=== PATIENT | male | born 1960 | race Hispanic/Latino ===

== ENCOUNTER 2020-03-28 01:17 | Inpatient (IN) | payer BC, OTHER ==
[~2020-03-28] VITALS: Ht 180.3 cm; Wt 127.0 kg
[~2020-03-28 01:17] MED LIST: ASPI-1443 PO; ATOR40TA69 PO; HYDR-4068 PO; LOSA50TA64 PO; METO25 PO; TICA90TA PO
[2020-03-28 01:43] LABS: ABG BASE EXCESS -4.4 mmol/L (-2.0-3.0); ABG HCO3 19.1 mmol/L (21.0-28.0); ABG OXYGEN SATURATION 95.4 % (95.0-99.0); ABG PCO2 31 mmHg (35-48)
[2020-03-28 01:52] LABS: BASOPHILS % (AUTO) 0.8 % (0.0-5.0); EOSINOPHILS % (AUTO) 0.1 % (0.0-8.0); HEMATOCRIT 52.7 % (42-54); LYMPHOCYTES % (AUTO) 24.5 % (21.0-51.0); MEAN CORPUSCULAR HEMOGLOBIN 30.8 pg (27.0-33.0); MEAN CORPUSCULAR HGB CONC 33.4 g/dL (32.0-36.0); MEAN CORPUSCULAR VOLUME 92.3 fL (79-99); MONOCYTES % (AUTO) 3.9 % (3.0-13.0); NEUTROPHILS % (AUTO) 70.3 % (40.0-77.0); PLATELET COUNT (AUTO) 225 K/uL (130-400); RED BLOOD CELL COUNT(AUTO) 5.71 MIL/uL (4.50-6.20); RED CELL DISTRIBUTION WIDTH 13.1 % (11.0-15.5); WHITE BLOOD COUNT (AUTO) 7.6 K/uL (4.8-10.8)
[2020-03-28 02:13] LABS: B-TYPE NATRIURETIC PEPTIDE 145 pg/mL (0-100)
[2020-03-28 02:20] LABS: POTASSIUM 4.1 mmol/L (3.5-5.1)
[2020-03-28 02:21] LABS: APPEARANCE,URINE Clear (CLEAR); BILIRUBIN,URINE Negative (NEGATIVE); COLOR,URINE Yellow (YELLOW); GLUCOSE, URINE (UA) Negative (NEGATIVE); KETONES,URINE Negative (NEGATIVE); LEUKOCYTE ESTERASE ,URINE Negative (NEGATIVE); NITRATE,URINE Negative (NEGATIVE); OCCULT BLOOD,URINE Negative (NEGATIVE); PROTEIN,URINE Negative (NEGATIVE); UROBILINOGEN,URINE 0.2 mg/dL (0.2-1.0)
[2020-03-28 02:24] LABS: INR 0.99 (0.85-1.15); PARTIAL THROMBOPLASTIN TIME 28.4 SEC (26.3-35.5); PROTHROMBIN TIME 10.7 SEC (9.6-11.6)
[2020-03-28 02:25] LABS: ALBUMIN 3.6 g/dL (3.5-5.0); BILIRUBIN,TOTAL 0.5 mg/dL (0.2-1.0); TOTAL PROTEIN, SERUM 7.7 g/dL (6.0-8.3)
[2020-03-28] MEDS ORDERED: DILTIAZEM HCL 5 MG/ML 10 ML VIAL IV ONE (02:43)
[2020-03-28] MEDS ORDERED: AZITHROMYCIN 500MG+NS 250ML 250 ML IV ONE (03:01)
[2020-03-28] MEDS ORDERED: CEFTRIAXONE SODIUM 1 GM ONE (03:01)
[2020-03-28] MEDS ORDERED: IOHEXOL 350 MG/ML 100ML INFUS..BTL IV ONE (03:07)
[2020-03-28] MEDS ORDERED: HYDRALAZINE HCL 20 MG/ML VIAL IV PRN (03:45)
[2020-03-28] MEDS ORDERED: ONDANSETRON HCL 4 MG/2 ML VIAL IV PRN (03:45)
[2020-03-28] MEDS ORDERED: NITROGLYCERIN 0.4 MG SL TAB SL PRN (03:45)
[2020-03-28] MEDS ORDERED: ERGOCALCIFEROL (VITAMIN D2) 50,000 UNIT CAPSULE PO ONE (03:45)
[2020-03-28] MEDS ORDERED: CEFTRIAXONE SODIUM 1 GM IVP SCH (03:45)
[2020-03-28] MEDS ORDERED: ACETAMINOPHEN 325 MG TAB PO PRN (03:45)
[2020-03-28 06:59] VITALS: BP 141/74
[2020-03-28 07:30] VITALS: BP 143/100
[2020-03-28] MEDS ORDERED: FUROSEMIDE 10 MG/ML 2ML VIAL IV SCH (08:30)
[2020-03-28] MEDS: ZINC SULFATE 220 CAPSULE PO SCH ×2 (08:50→08:55)
[2020-03-28] MEDS: METOPROLOL TARTRATE 25 MG TAB PO SCH ×2 (08:51→20:55)
[2020-03-28] MEDS: ASCORBIC ACID 500 MG TAB PO SCH (08:55)
[2020-03-28] MEDS: ACETYLCYSTEINE 600 MG CAPSULE PO SCH ×2 (08:56→20:55)
[2020-03-28] MEDS ORDERED: METHYLPREDNISOLONE SOD SUCC 40MG/ML 1ML IVP SCH (09:00)
[2020-03-28] MEDS: APIXABAN 5 MG TABLET PO SCH ×2 (09:27→20:55)
[2020-03-28] MEDS: ASPIRIN 81MG TAB.CHEW PO SCH (09:34)
[2020-03-28 12:00] VITALS: BP 140/85
[2020-03-28 16:00] VITALS: BP 150/95
[2020-03-28 19:00] VITALS: BP 119/68
[2020-03-28] MEDS: ATORVASTATIN CALCIUM 20 MG TABLET PO SCH (20:55)
[2020-03-28 23:00] VITALS: BP 90/64
[2020-03-29 03:00] VITALS: BP 118/83
[2020-03-29 05:02] LABS: BASOPHILS % (AUTO) 0.6 % (0.0-5.0); EOSINOPHILS % (AUTO) 3.2 % (0.0-8.0); HEMATOCRIT 48.8 % (42-54); LYMPHOCYTES % (AUTO) 24.7 % (21.0-51.0); MEAN CORPUSCULAR HEMOGLOBIN 30.4 pg (27.0-33.0); MEAN CORPUSCULAR HGB CONC 32.4 g/dL (32.0-36.0); MONOCYTES % (AUTO) 6.5 % (3.0-13.0); NEUTROPHILS % (AUTO) 64.7 % (40.0-77.0); PLATELET COUNT (AUTO) 193 K/uL (130-400); RED BLOOD CELL COUNT(AUTO) 5.19 MIL/uL (4.50-6.20); WHITE BLOOD COUNT (AUTO) 6.5 K/uL (4.8-10.8)
[2020-03-29 05:21] LABS: ALANINE AMINOTRANSFERASE 20 U/L (12-78); ALBUMIN 3.1 g/dL (3.5-5.0); ASPARTATE AMINOTRANSFERASE 16 U/L (10-37); BILIRUBIN,TOTAL 0.7 mg/dL (0.2-1.0); CARBON DIOXIDE 25 mmol/L (21-32); CHLORIDE 105 mmol/L (101-111); CHOLESTEROL 172 mg/dL (<200); GLOMERULAR FILTR. RATE CALC 82 mL/min (>60); GLUCOSE,RANDOM 97 mg/dL (70-105); HDL CHOLESTEROL 33 mg/dL (29-71); LACTATE DEHYDROGENASE 136 U/L (81-234); LDL DIRECT 117 mg/dL (0-99); POTASSIUM 4.3 mmol/L (3.5-5.1); SODIUM SERUM 138 mmol/L (136-145); TOTAL PROTEIN, SERUM 6.7 g/dL (6.0-8.3); TRIGLYCERIDES 147 mg/dL (30-200); UREA NITROGEN, BLOOD 12 mg/dL (7-18)
[2020-03-29] MEDS: ASPIRIN 81MG TAB.CHEW PO SCH (08:05)
[2020-03-29] MEDS: ACETYLCYSTEINE 600 MG CAPSULE PO SCH ×2 (08:05→21:39)
[2020-03-29] MEDS: APIXABAN 5 MG TABLET PO SCH (08:06)
[2020-03-29] MEDS: ZINC SULFATE 220 CAPSULE PO SCH (08:06)
[2020-03-29] MEDS: METOPROLOL TARTRATE 25 MG TAB PO SCH (08:06)
[2020-03-29] MEDS: ASCORBIC ACID 500 MG TAB PO SCH (08:06)
[2020-03-29 10:03] VITALS: BP 126/88
[2020-03-29 12:18] VITALS: BP 178/88
--- NOTE | 2020-03-29 16:09 | NUR ---
DC PLAN CALLED PATIENT ROOM NO ANSWER. CALLED SON ON FACE SHEET EDGAR CURRIE NOT A WORKING NUMBER. DESIRAE WILL CONTINUE TO FOLLOW. Addendum: 03/29/20 at 1610 by ANTHONY SOLORIO RN CM Amended: Links added.
[2020-03-29 16:23] VITALS: BP 152/107
[2020-03-29 19:45] VITALS: BP 122/81
[2020-03-29] MEDS ORDERED: METOPROLOL SUCCINATE 50 MG TAB.SR.24H PO SCH (21:00)
[2020-03-29] MEDS: ATORVASTATIN CALCIUM 20 MG TABLET PO SCH (21:39)
[2020-03-29] MEDS: ENOXAPARIN SODIUM 120 MG/0.8ML SQ SCH (22:15)
[2020-03-29 23:58] VITALS: BP 133/87
[2020-03-30] VITALS (7 sets, daily range): BP systolic 105–151; BP diastolic 68–93
[2020-03-30 05:58] LABS: BASOPHILS % (AUTO) 0.6 % (0.0-5.0); EOSINOPHILS % (AUTO) 0.2 % (0.0-8.0); HEMATOCRIT 50.4 % (42-54); LYMPHOCYTES % (AUTO) 24.9 % (21.0-51.0); MEAN CORPUSCULAR HEMOGLOBIN 30.6 pg (27.0-33.0); MEAN CORPUSCULAR HGB CONC 32.9 g/dL (32.0-36.0); MEAN CORPUSCULAR VOLUME 92.8 fL (79-99); MONOCYTES % (AUTO) 6.2 % (3.0-13.0); NEUTROPHILS % (AUTO) 67.7 % (40.0-77.0); PLATELET COUNT (AUTO) 227 K/uL (130-400); RED BLOOD CELL COUNT(AUTO) 5.43 MIL/uL (4.50-6.20); RED CELL DISTRIBUTION WIDTH 12.8 % (11.0-15.5); WHITE BLOOD COUNT (AUTO) 8.1 K/uL (4.8-10.8)
[2020-03-30 06:18] LABS: ALANINE AMINOTRANSFERASE 23 U/L (12-78); ALBUMIN 3.3 g/dL (3.5-5.0); ASPARTATE AMINOTRANSFERASE 15 U/L (10-37); BILIRUBIN,TOTAL 0.7 mg/dL (0.2-1.0); CARBON DIOXIDE 20 mmol/L (21-32); CHLORIDE 105 mmol/L (101-111); GLOMERULAR FILTR. RATE CALC 82 mL/min (>60); GLUCOSE,RANDOM 95 mg/dL (70-105); LACTATE DEHYDROGENASE 143 U/L (81-234); POTASSIUM 4.3 mmol/L (3.5-5.1); SODIUM SERUM 137 mmol/L (136-145); TOTAL PROTEIN, SERUM 7.1 g/dL (6.0-8.3); UREA NITROGEN, BLOOD 13 mg/dL (7-18)
--- NOTE | 2020-03-30 07:34 | NUR ---
PATIENT UPDATE PT RECEIVED A TRANSFER FROM 2ND FLOOR, ADMITTED FOR AFIB WITH RVR, NOW IT'S MORE CONTROLLED RUNNING BET 90 TO 110. HEART RATE GOES UP TO 130'S TO 140'S WHEN PT STARTS WALKING IN THE ROOM, STARTS BRUSHING HIS TEETH BUT NON SUSTAINED. KEPT NPO POST MN FOR POSSIBLE [place] STRESS TEST TODAY. SAVANA EDWARDS CALLED AND GAVE A PHONE ORDER FOR PT TO GO FOR [place] STRESS TEST TODAY. PT SLEPT COMFORTABLY OVERNIGHT, NO CHEST PAIN, NO SHORTNESS OF BREATH, USES THE O2 2L PER NASAL CANNULA ON AND OFF. NO COMPLAINTS OF ANY DISCOMFORT VOICED OUT.
[2020-03-30] MEDS: ASPIRIN 81MG TAB.CHEW PO SCH (09:00)
[2020-03-30] MEDS: ACETYLCYSTEINE 600 MG CAPSULE PO SCH ×2 (09:00→21:48)
[2020-03-30] MEDS: ASCORBIC ACID 500 MG TAB PO SCH (09:00)
[2020-03-30] MEDS: LOSARTAN 50 MG TABLET PO SCH (09:00)
[2020-03-30] MEDS: ENOXAPARIN SODIUM 120 MG/0.8ML SQ SCH ×2 (09:00→21:51)
[2020-03-30] MEDS: ZINC SULFATE 220 CAPSULE PO SCH (09:00)
[2020-03-30] MEDS ORDERED: METOPROLOL TARTRATE 1 MG/ML 5ML VIAL IV PRN (09:15)
[2020-03-30] MEDS ORDERED: METO50 PO (09:54)
[2020-03-30] MEDS ORDERED: TYL3B PO (09:54)
[2020-03-30] MEDS ORDERED: REGADENOSON 0.4 MG/5 ML PF SYG IVP SCH (11:45)
[2020-03-30] MEDS: METOPROLOL SUCCINATE 50 MG TAB.SR.24H PO SCH (21:48)
[2020-03-30] MEDS: ATORVASTATIN CALCIUM 20 MG TABLET PO SCH (21:51)
[2020-03-31 03:52] VITALS: BP 107/64
[2020-03-31 05:19] LABS: BASOPHILS % (AUTO) 0.6 % (0.0-5.0); EOSINOPHILS % (AUTO) 0.4 % (0.0-8.0); LYMPHOCYTES % (AUTO) 29.7 % (21.0-51.0); MEAN CORPUSCULAR VOLUME 93.8 fL (79-99); MONOCYTES % (AUTO) 7.5 % (3.0-13.0); NEUTROPHILS % (AUTO) 61.5 % (40.0-77.0); PLATELET COUNT (AUTO) 204 K/uL (130-400); RED BLOOD CELL COUNT(AUTO) 5.33 MIL/uL (4.50-6.20); RED CELL DISTRIBUTION WIDTH 12.7 % (11.0-15.5); WHITE BLOOD COUNT (AUTO) 6.8 K/uL (4.8-10.8)
[2020-03-31 05:44] LABS: ALANINE AMINOTRANSFERASE 26 U/L (12-78); ALBUMIN 3.4 g/dL (3.5-5.0); ASPARTATE AMINOTRANSFERASE 21 U/L (10-37); BILIRUBIN,TOTAL 0.8 mg/dL (0.2-1.0); CARBON DIOXIDE 24 mmol/L (21-32); CHLORIDE 105 mmol/L (101-111); CREATININE 1.2 mg/dL (0.5-1.5); GLOMERULAR FILTR. RATE CALC 66 mL/min (>60); GLUCOSE,RANDOM 91 mg/dL (70-105); LACTATE DEHYDROGENASE 154 U/L (81-234); POTASSIUM 4.3 mmol/L (3.5-5.1); SODIUM SERUM 138 mmol/L (136-145); TOTAL PROTEIN, SERUM 7.1 g/dL (6.0-8.3); UREA NITROGEN, BLOOD 13 mg/dL (7-18)
[2020-03-31] MEDS: ASCORBIC ACID 500 MG TAB PO SCH (08:08)
[2020-03-31] MEDS: LOSARTAN 50 MG TABLET PO SCH (08:08)
[2020-03-31] MEDS: METOPROLOL SUCCINATE 50 MG TAB.SR.24H PO SCH ×2 (08:08→20:26)
[2020-03-31] MEDS: ASPIRIN 81MG TAB.CHEW PO SCH (08:08)
[2020-03-31] MEDS: ACETYLCYSTEINE 600 MG CAPSULE PO SCH ×2 (08:09→20:26)
[2020-03-31] MEDS: ENOXAPARIN SODIUM 120 MG/0.8ML SQ SCH ×2 (08:09→20:26)
[2020-03-31] MEDS: ZINC SULFATE 220 CAPSULE PO SCH (08:09)
[2020-03-31 08:39] VITALS: BP 132/91
[2020-03-31 12:54] VITALS: BP 167/88
--- NOTE | 2020-03-31 16:53 | NUR ---
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 no dme. dc plan is back home. no dc needs. Addendum: 03/31/20 at 1654 by EUGENE LUCIANO CM Amended: Links added.
[2020-03-31 17:57] VITALS: BP 110/72
[2020-03-31 19:30] VITALS: BP 111/67
[2020-03-31] MEDS: ATORVASTATIN CALCIUM 20 MG TABLET PO SCH (20:26)
[2020-03-31 23:00] VITALS: BP 104/62
[2020-04-01] VITALS (12 sets, daily range): BP systolic 93–159; BP diastolic 40–97
--- NOTE | 2020-04-01 02:31 | NUR ---
STATUS Pt denies chest pain or sob.He's scheduled for a heart cath today.He is aware of Npo status.
[2020-04-01] MEDS: METOPROLOL SUCCINATE 50 MG TAB.SR.24H PO SCH ×2 (05:44→21:00)
[2020-04-01] MEDS: ENOXAPARIN SODIUM 120 MG/0.8ML SQ SCH (07:33)
[2020-04-01] MEDS: ASPIRIN 81MG TAB.CHEW PO SCH (09:00)
[2020-04-01] MEDS ORDERED: BIVALIRUDIN 250 MG/VIAL IV ONE (09:03)
[2020-04-01] MEDS ORDERED: IOHEXOL-350 50ML VIAL IV ONE (09:04)
[2020-04-01] MEDS ORDERED: MIDAZOLAM HCL 1 MG/ML 2ML VIAL ONE ×2 (09:04→09:54)
[2020-04-01] MEDS ORDERED: FENTANYL CITRATE PF 50 MCG/1 ML 2ML VIAL ONE (09:04)
[2020-04-01] MEDS ORDERED: LIDOCAINE HCL 2% 20ML ONE (09:04)
[2020-04-01] MEDS ORDERED: NITROGLYCERIN 2 MG/VIAL VIAL IV ONE (09:04)
[2020-04-01] MEDS ORDERED: IOHEXOL 350 MG/ML 100ML INFUS..BTL IV ONE (09:04)
[2020-04-01] MEDS ORDERED: NITROGLYCERIN 0.4 MG SL TAB SL PRN (10:00)
[2020-04-01] MEDS ORDERED: HYDRALAZINE HCL 20 MG/ML VIAL ONE (10:20)
[2020-04-01] MEDS: LOSARTAN 50 MG TABLET PO SCH (11:04)
[2020-04-01] MEDS: SPIRONOLACTONE 25 MG TAB PO SCH (11:04)
[2020-04-01] MEDS: ACETYLCYSTEINE 600 MG CAPSULE PO SCH ×2 (11:04→23:08)
[2020-04-01] MEDS: ASCORBIC ACID 500 MG TAB PO SCH (11:04)
[2020-04-01] MEDS: ZINC SULFATE 220 CAPSULE PO SCH (11:06)
[2020-04-01] MEDS: ACETAMINOPHEN 325 MG TAB PO PRN ×2 (11:38→23:03)
[2020-04-01] MEDS ORDERED: FAMOTIDINE 20MG TAB 20 MG TAB ONE (22:33)
[2020-04-01] MEDS: ATORVASTATIN CALCIUM 20 MG TABLET PO SCH (23:07)
[2020-04-02] VITALS (7 sets, daily range): BP systolic 110–136; BP diastolic 70–91
[2020-04-02] MEDS: ASPIRIN 81MG TAB.CHEW PO SCH (08:09)
[2020-04-02] MEDS: ZINC SULFATE 220 CAPSULE PO SCH (08:10)
[2020-04-02] MEDS: METOPROLOL SUCCINATE 50 MG TAB.SR.24H PO SCH ×2 (08:10→21:00)
[2020-04-02] MEDS: ASCORBIC ACID 500 MG TAB PO SCH (08:10)
[2020-04-02] MEDS: ACETYLCYSTEINE 600 MG CAPSULE PO SCH ×2 (08:10→21:00)
[2020-04-02] MEDS: SPIRONOLACTONE 25 MG TAB PO SCH (08:10)
[2020-04-02] MEDS: LOSARTAN 50 MG TABLET PO SCH (08:11)
[2020-04-02] MEDS: APIXABAN 5 MG TABLET PO SCH ×2 (09:30→21:00)
--- NOTE | 2020-04-02 13:27 | NUR ---
CM NOTE/LIFE VEST NEW ORDER FOR LIFE VEST, SHYAM COMPLETED. CLINICAL PACKET FAXED TO [employer] [facility], THIS CM TO FOLLOW UP.
[2020-04-02] MEDS ORDERED: METO-409 PO (14:50)
[2020-04-02] MEDS ORDERED: LOSA25TA41 PO (14:51)
[2020-04-02] MEDS ORDERED: APIX5TAB PO (14:52)
[2020-04-02] MEDS ORDERED: SPIR25TA6 PO (14:52)
--- NOTE | 2020-04-02 16:46 | NUR ---
CM NOTE/[facility] VEST PER GLORIA RM AT [facility], UNDER PROCESS AND PENDING DELIVERY TODAY IF APPROVED.REPORT GIVEN TO ERIC SANDHU.
[2020-04-02] MEDS: ATORVASTATIN CALCIUM 20 MG TABLET PO SCH (21:00)
[2020-04-03 03:43] VITALS: BP 116/80
[2020-04-03 07:00] VITALS: BP 109/71
[2020-04-03] MEDS: SPIRONOLACTONE 25 MG TAB PO SCH (09:50)
[2020-04-03] MEDS: ZINC SULFATE 220 CAPSULE PO SCH (09:50)
[2020-04-03] MEDS: ASPIRIN 81MG TAB.CHEW PO SCH (09:50)
[2020-04-03] MEDS: APIXABAN 5 MG TABLET PO SCH ×2 (09:51→20:58)
[2020-04-03] MEDS: METOPROLOL SUCCINATE 50 MG TAB.SR.24H PO SCH ×2 (09:51→20:57)
[2020-04-03] MEDS: LOSARTAN 50 MG TABLET PO SCH (09:51)
[2020-04-03] MEDS: ACETYLCYSTEINE 600 MG CAPSULE PO SCH ×2 (09:51→20:57)
[2020-04-03] MEDS: ASCORBIC ACID 500 MG TAB PO SCH (09:51)
[2020-04-03 11:00] VITALS: BP 125/73
[2020-04-03 16:00] VITALS: BP 118/70
[2020-04-03 20:04] VITALS: BP 114/85
[2020-04-03] MEDS: ATORVASTATIN CALCIUM 20 MG TABLET PO SCH (20:57)
[2020-04-03 23:37] VITALS: BP 115/74
--- NOTE | 2020-04-04 00:56 | NUR ---
Prior to shift change pt. was scheduled for discharge after consulting w/case management about life vest. Pt. arrives at nurse station informed me someone from insurance told him he would not be approved for life vest for 24 to 72 hrs. I talked to Tiffany from insurance [phone] and she informed me that life vest could not be pre-approved and had to go thorough insurance which could take up to 3 days or sooner. I informed patient of this and he verbalized understanding.
[2020-04-04 04:36] VITALS: BP 123/89
[2020-04-04 05:47] LABS: CREATININE 1.1 mg/dL (0.5-1.5); MAGNESIUM 1.9 mg/dL (1.80-2.40); POTASSIUM 4.2 mmol/L (3.5-5.1)
[2020-04-04 07:00] VITALS: BP 115/67
--- NOTE | 2020-04-04 10:00 | NUR ---
CM NOTE/LIFE VEST PENDING PER GLORIA AT [facility], PATIENTS INSURANCE WILL TAKE UP TO 72HR FOR REVIEWED THEN SUBMIT FOR AUTHORIZATION. INFORMED PATIENT AND PRIMARY NURSE, PLACIDO SANDHU. TOLD PLACIDO SANDHU TO CALL [employer] ATT[employer]ER TO INFORM OF ISSUE AND IF OK FOR PATIENT TO STAY IN HOSPITAL TO WAIT FOR VEST OF IF PATIENT CAN DC HOME AND BE FITTED AT HOME, PLACIDO SANDHU VERBALIZED UNDERSTANDING. ISSUE ESCALATED TO CM DIRECTOR, HAYES CAMACHO RN. MET WITH PATIENT IN ROOM TO INFORM OF ISSUE, VERBALIZED UNDERSTANDING.
[2020-04-04] MEDS: METOPROLOL SUCCINATE 50 MG TAB.SR.24H PO SCH ×2 (10:09→21:13)
[2020-04-04] MEDS: ZINC SULFATE 220 CAPSULE PO SCH (10:09)
[2020-04-04] MEDS: ACETYLCYSTEINE 600 MG CAPSULE PO SCH (10:09)
[2020-04-04] MEDS: LOSARTAN 50 MG TABLET PO SCH (10:09)
[2020-04-04] MEDS: ASPIRIN 81MG TAB.CHEW PO SCH (10:09)
[2020-04-04] MEDS: SPIRONOLACTONE 25 MG TAB PO SCH (10:10)
[2020-04-04] MEDS: APIXABAN 5 MG TABLET PO SCH ×2 (10:10→21:13)
[2020-04-04] MEDS: ASCORBIC ACID 500 MG TAB PO SCH (10:10)
[2020-04-04 11:00] VITALS: BP 113/62
--- NOTE | 2020-04-04 11:56 | NUR ---
DR. ROLLE IN ROOM SPEAKING WITH PT.
[2020-04-04 16:00] VITALS: BP 115/68
[2020-04-04 19:57] VITALS: BP 136/66
[2020-04-04] MEDS: ATORVASTATIN CALCIUM 20 MG TABLET PO SCH (21:13)
[2020-04-04 23:53] VITALS: BP 110/69
[2020-04-05 03:50] VITALS: BP 108/63
[2020-04-05 08:11] VITALS: BP 126/74
[2020-04-05] MEDS: ASCORBIC ACID 500 MG TAB PO SCH (09:14)
[2020-04-05] MEDS: ASPIRIN 81MG TAB.CHEW PO SCH (09:14)
[2020-04-05] MEDS: SPIRONOLACTONE 25 MG TAB PO SCH (09:14)
[2020-04-05] MEDS: APIXABAN 5 MG TABLET PO SCH (09:14)
[2020-04-05] MEDS: LOSARTAN 50 MG TABLET PO SCH (09:15)
[2020-04-05] MEDS: METOPROLOL SUCCINATE 50 MG TAB.SR.24H PO SCH (09:15)
[2020-04-05 11:47] VITALS: BP 114/75
--- NOTE | 2020-04-05 11:49 | NUR ---
CM NOTE SPOKE WITH GLORIA RM FROM [facility], VEST STILL UNDER PROCESS. PRIMARY NURSE, BROOKE RN, MADE AWARE. ASKED BROOKE TO CALL LEAD AUDITOR TO EXPLAIN PROCESS AND LENGHT OF STAY. POSSIBILITY OF PATIENT DISCHARGING IF STABLE AND BE FITTED AT HOME. ISSUE ALSO MADE AWARE TO ANCELMO SANDHU, CHARGE NURSE. THIS ISSUE WILL BE ESCALATED TO HAYES SY RN, CM DIRECTOR. CM TO FOLLOW UP.
--- NOTE | 2020-04-05 14:00 | NUR ---
LEFT AMA PATIENT DECIDED TO LEAVE AMA. CARDIOLOGY DR MATA AND DR ROLLE SPOKE TO PATIENT REGARDING RISKS OF LEAVING AGAINST MEDICAL ADVICE. IV DISCONTINUED.
== END 2020-04-05 14:30 | disposition left against medical advice (07) | DRG 286 ==
LOC: EDH 01:17 → EDHIP 03:43 → OBSVTOIN 03:43 → 2AH 06:28 → 3BH 03-29 19:48 → 4CH 03-30 09:25
PROVIDERS: ADMIT Internal Medicine; ATTEND Internal Medicine
PROC: 4A023N7 Measurement of Cardiac Sampling and Pressure, Left Heart, Percutaneous Approach (ICD-10-PCS; principal; 2020-04-01)
PROC: B2111ZZ Fluoroscopy of Multiple Coronary Arteries using Low Osmolar Contrast (ICD-10-PCS; 2020-04-01)
PROC: B2151ZZ Fluoroscopy of Left Heart using Low Osmolar Contrast (ICD-10-PCS; 2020-04-01)
DX: I48.0 Paroxysmal atrial fibrillation (principal); I50.43 Acute on chronic combined systolic (congestive) and diastolic (congestive) heart failure; D68.59 Other primary thrombophilia; I11.0 Hypertensive heart disease with heart failure; I25.5 Ischemic cardiomyopathy; F17.210 Nicotine dependence, cigarettes, uncomplicated; E78.5 Hyperlipidemia, unspecified; E66.01 Morbid (severe) obesity due to excess calories; R94.39 Abnormal result of other cardiovascular function study; I25.10 Atherosclerotic heart disease of native coronary artery without angina pectoris; I25.9 Chronic ischemic heart disease, unspecified; F41.9 Anxiety disorder, unspecified; Z20.828 Contact with and (suspected) exposure to other viral communicable diseases; Z53.29 Procedure and treatment not carried out because of patient's decision for other reasons; Z95.5 Presence of coronary angioplasty implant and graft; Z91.19 Patient's noncompliance with other medical treatment and regimen; Z91.14 Patient's other noncompliance with medication regimen; Z83.3 Family history of diabetes mellitus; Z82.49 Family history of ischemic heart disease and other diseases of the circulatory system; Z79.899 Other long term (current) drug therapy; Z79.02 Long term (current) use of antithrombotics/antiplatelets; Z79.01 Long term (current) use of anticoagulants; Z68.39 Body mass index [BMI] 39.0-39.9, adult; Z71.6 Tobacco abuse counseling
CPT/HCPCS: 36415; 36600; 71045; 71275; 78452; 80048; 80053; 80061; 81003; 82728; 82803; 83605; 83615; 83735; 83880; 84145; 84484; 85025; 85378; 85610; 85730; 86140; 86900; 86901; 87040; 87088; 87426; 87486; 87581; 87633; 87798; 87804; 93005; 93017; 93306; 93458; 96374; 99156; 99157; 99291; A9500; C1894; G0378; J0360; J0456; J0583; J0696; J1644; J1650; J1940; J2250; J2785; J3010; J3490; Q9967; U0003

== ENCOUNTER → 2020-07-11 | Outpatient (CLI) | payer BC, OTHER ==
[~2020-07-11] MED LIST changes: +APIX5TAB PO; -HYDR-4068 PO; +LOSA25TA41 PO; -LOSA50TA64 PO; +METO-409 PO; -METO25 PO; +SPIR25TA6 PO; -TICA90TA PO; +TYL3B PO
== END | disposition home or self-care (01) ==
LOC: SHCH 11:20
PROVIDERS: ATTEND Internal Medicine Cardiovascular Disease
DX: I48.20 Chronic atrial fibrillation, unspecified (principal)
CPT/HCPCS: 93306; 93356

== ENCOUNTER → 2020-12-05 | Outpatient (CLI) | payer SELFPAY | END | disposition home or self-care (01) | LOC: SHCH 10:28 | PROVIDERS: ATTEND Internal Medicine Cardiovascular Disease | DX: I70.293 Other atherosclerosis of native arteries of extremities, bilateral legs (principal); R60.9 Edema, unspecified; I87.2 Venous insufficiency (chronic) (peripheral) | CPT/HCPCS: 93925; 93970 ==

== ENCOUNTER 2021-04-27 22:28 | Emergency (ER) | payer OTHER, SELFPAY ==
[~2021-04-27] VITALS: Ht 180.3 cm; Wt 139.3 kg
[2021-04-27 22:41] LABS: BASOPHILS % (AUTO) 0.6 % (0.0-5.0); EOSINOPHILS % (AUTO) 0.7 % (0.0-8.0); HEMATOCRIT 48.2 % (42-54); LYMPHOCYTES % (AUTO) 23.5 % (21.0-51.0); MEAN CORPUSCULAR HEMOGLOBIN 30.4 pg (27.0-33.0); MEAN CORPUSCULAR HGB CONC 33.2 g/dL (32.0-36.0); MEAN CORPUSCULAR VOLUME 91.5 fL (79-99); MONOCYTES % (AUTO) 6.4 % (3.0-13.0); NEUTROPHILS % (AUTO) 68.2 % (40.0-77.0); PLATELET COUNT (AUTO) 206 K/uL (130-400); RED BLOOD CELL COUNT(AUTO) 5.27 MIL/uL (4.50-6.20); RED CELL DISTRIBUTION WIDTH 13.5 % (11.0-15.5); WHITE BLOOD COUNT (AUTO) 10.9 K/uL (4.8-10.8)
[2021-04-27 22:59] LABS: CREATININE 0.9 mg/dL (0.5-1.5); POTASSIUM 4.1 mmol/L (3.5-5.1)
[2021-04-27 23:04] LABS: ALBUMIN 3.3 g/dL (3.5-5.0); BILIRUBIN,TOTAL 0.3 mg/dL (0.2-1.0); TOTAL PROTEIN, SERUM 7.1 g/dL (6.0-8.3)
[2021-04-27] MEDS: LORAZEPAM 2 MG/ML 1 ML VIAL ONE (23:13)
[2021-04-27] MEDS: LORAZEPAM 2 MG/ML 1 ML VIAL IVP ONE (23:13)
[2021-04-27] MEDS: LABETALOL 20MG SYG IV ONE ×2 (23:13)
[2021-04-27] MEDS ORDERED: HYDR-3421 PO (23:14)
[2021-04-27 23:24] VITALS: BP 128/88
== END 2021-04-27 23:28 | disposition home or self-care (01) ==
LOC: EDH 22:28
DX: I48.91 Unspecified atrial fibrillation (principal); I11.0 Hypertensive heart disease with heart failure; I50.9 Heart failure, unspecified; F41.0 Panic disorder [episodic paroxysmal anxiety]; J44.9 Chronic obstructive pulmonary disease, unspecified; E66.9 Obesity, unspecified; F17.210 Nicotine dependence, cigarettes, uncomplicated; Z79.01 Long term (current) use of anticoagulants; Z79.899 Other long term (current) drug therapy; Z79.82 Long term (current) use of aspirin; Z68.41 Body mass index [BMI] 40.0-44.9, adult
CPT/HCPCS: 36415; 71045; 80053; 84484; 85025; 93005; 96374; 96375; 99285; J2060

== ENCOUNTER → 2021-05-22 | Outpatient (CLI) | payer OTHER ==
[~2021-05-22] VITALS: Ht 180.3 cm; Wt 141.1 kg
[~2021-05-22] MED LIST changes: +0.9% NACL 500ML IV.SOLN 500 ML IV SCH; +HYDR-3421 PO
[2021-05-22 13:29] LABS: BASOPHILS % (AUTO) 0.7 % (0.0-5.0); EOSINOPHILS % (AUTO) 1.9 % (0.0-8.0); HEMATOCRIT 47.6 % (42-54); LYMPHOCYTES % (AUTO) 18.6 % (21.0-51.0); MEAN CORPUSCULAR HEMOGLOBIN 30.5 pg (27.0-33.0); MEAN CORPUSCULAR HGB CONC 32.8 g/dL (32.0-36.0); MONOCYTES % (AUTO) 8.1 % (3.0-13.0); NEUTROPHILS % (AUTO) 70.3 % (40.0-77.0); PLATELET COUNT (AUTO) 264 K/uL (130-400); RED BLOOD CELL COUNT(AUTO) 5.12 MIL/uL (4.50-6.20); RED CELL DISTRIBUTION WIDTH 13.2 % (11.0-15.5); WHITE BLOOD COUNT (AUTO) 9.8 K/uL (4.8-10.8)
[2021-05-22 13:39] LABS: INR 1.15 (0.85-1.15); PROTHROMBIN TIME 12.4 SEC (9.6-11.6)
[2021-05-22 13:41] LABS: PARTIAL THROMBOPLASTIN TIME 31.8 SEC (26.3-35.5)
[2021-05-22 13:51] LABS: POTASSIUM 4.2 mmol/L (3.5-5.1)
[2021-05-26 10:42] VITALS: BP 136/90
== END | disposition home or self-care (01) ==
LOC: DAH 10:00 → EDSTATUS 12:00
PROVIDERS: ATTEND Internal Medicine Cardiovascular Disease
DX: Z01.810 Encounter for preprocedural cardiovascular examination (principal); I48.20 Chronic atrial fibrillation, unspecified; I50.32 Chronic diastolic (congestive) heart failure; Z79.01 Long term (current) use of anticoagulants
CPT/HCPCS: 36415; 80048; 85025; 85610; 85730; 93005

== ENCOUNTER → 2021-12-30 | Outpatient (CLI) | payer OTHER ==
[~2021-12-30] VITALS: Ht 180.3 cm; Wt 133.8 kg
[~2021-12-30] MED LIST changes: -0.9% NACL 500ML IV.SOLN 500 ML IV SCH; +FURO40TA5 PO; +GABA-529 PO; -HYDR-3421 PO; -METO-409 PO; +REGADENOSON 0.4 MG/5 ML PF SYG IVP SCH; -SPIR25TA6 PO; -TYL3B PO
== END | disposition home or self-care (01) ==
LOC: SHCH 12-26 08:49
PROVIDERS: ATTEND Internal Medicine Cardiovascular Disease
DX: I51.7 Cardiomegaly (principal); I48.91 Unspecified atrial fibrillation; E78.5 Hyperlipidemia, unspecified; I25.2 Old myocardial infarction; Z79.01 Long term (current) use of anticoagulants; Z95.810 Presence of automatic (implantable) cardiac defibrillator; Z95.5 Presence of coronary angioplasty implant and graft
CPT/HCPCS: 78452; 93017; 96374; A9500 ×2; J2785

== ENCOUNTER → 2022-01-07 | Outpatient (CLI) | payer OTHER ==
[~2022-01-07] MED LIST changes: +ALBUTEROL 0.083% 2.5 MG/3 ML INH IH ONE; -REGADENOSON 0.4 MG/5 ML PF SYG IVP SCH
== END | disposition home or self-care (01) ==
LOC: RESP 12:55
PROVIDERS: ATTEND Internal Medicine Cardiovascular Disease
DX: J44.9 Chronic obstructive pulmonary disease, unspecified (principal); R06.02 Shortness of breath; E78.5 Hyperlipidemia, unspecified; I10 Essential (primary) hypertension
CPT/HCPCS: 94060

== ENCOUNTER 2023-01-25 08:35 | Day surgery (SDC) | payer OTHER ==
[2023-01-21 12:23] VITALS: BP 150/80
[2023-01-21 12:27] LABS: APPEARANCE,URINE CLOUDY (CLEAR); BILIRUBIN,URINE NEGATIVE (NEGATIVE); COLOR,URINE YELLOW (YELLOW); GLUCOSE, URINE (UA) NEGATIVE (NEGATIVE); KETONES,URINE NEGATIVE (NEGATIVE); LEUKOCYTE ESTERASE ,URINE NEGATIVE Leu/uL (NEGATIVE); NITRATE,URINE NEGATIVE (NEGATIVE); OCCULT BLOOD,URINE NEGATIVE (NEGATIVE); PH,URINE 5.5 (5.0-8.0); PROTEIN,URINE 30 mg/dL (NEGATIVE); UROBILINOGEN,URINE 3 mg/dL (0.2-1.0)
[2023-01-21 12:34] LABS: BACTERIA,URINE RARE /HPF (None Seen); CALCIUM OXALATE CRYSTALS,UR FEW /LPF (None Seen); MUCUS,URINE MANY LPF (None Seen); SQUAMOUS EPITHELIAL CELL,UR FEW /HPF (0-2)
[2023-01-21 12:46] LABS: BASOPHILS % (AUTO) 0.4 % (0.0-5.0); EOSINOPHILS % (AUTO) 0.5 % (0.0-8.0); HEMATOCRIT 51.3 % (42-54); LYMPHOCYTES % (AUTO) 18.2 % (21.0-51.0); MEAN CORPUSCULAR HEMOGLOBIN 29.9 pg (27.0-33.0); MEAN CORPUSCULAR HGB CONC 32.7 g/dL (32.0-36.0); MEAN CORPUSCULAR VOLUME 91.3 fL (79-99); MONOCYTES % (AUTO) 6.1 % (3.0-13.0); NEUTROPHILS % (AUTO) 74.3 % (40.0-77.0); PLATELET COUNT (AUTO) 243 K/uL (130-400); RED BLOOD CELL COUNT(AUTO) 5.62 MIL/uL (4.50-6.20); RED CELL DISTRIBUTION WIDTH 14.4 % (11.0-15.5); WHITE BLOOD COUNT (AUTO) 9.8 K/uL (4.8-10.8)
[2023-01-21 12:53] LABS: CREATININE 0.8 mg/dL (0.5-1.5); POTASSIUM 3.8 mmol/L (3.5-5.1)
[2023-01-21 13:03] LABS: INR 1.09 (0.85-1.15); PROTHROMBIN TIME 12.6 SEC (9.6-11.6)
[2023-01-21 13:04] LABS: PARTIAL THROMBOPLASTIN TIME 34.5 SEC (26.3-35.5)
[2023-01-21 13:11] LABS: B-TYPE NATRIURETIC PEPTIDE 45 pg/mL (0-100)
[~2023-01-25] VITALS: Ht 180.3 cm; Wt 134.3 kg
[2023-01-25] VITALS (8 sets, daily range): BP systolic 119–169; BP diastolic 73–98
[~2023-01-25 08:35] MED LIST changes: -ALBUTEROL 0.083% 2.5 MG/3 ML INH IH ONE; -ASPI-1443 PO; -FURO40TA5 PO; +METF-444 PO; +METO-409 PO; +OMEP40CA21 PO
[2023-01-25] MEDS ORDERED: 0.9%NACL 1000ML 1,000 ML IV ONE (09:47)
[2023-01-25] MEDS ORDERED: SODIUM BICARB 50MEQ 50ML VIAL 50 ML ONE (12:16)
[2023-01-25] MEDS ORDERED: MEPERIDINE-PF 25 MG/ML SYG ONE ×2 (12:16→12:56)
[2023-01-25] MEDS ORDERED: MIDAZOLAM HCL 1 MG/ML 2ML VIAL ONE ×2 (12:16→12:57)
[2023-01-25] MEDS ORDERED: LIDOCAINE HCL 400MG/20ML VIAL ONE (12:16)
[2023-01-25] MEDS ORDERED: IOHEXOL 350 MG/ML 100ML INFUS..BTL IV ONE (12:16)
[2023-01-25] MEDS ORDERED: IOHEXOL-350 50ML VIAL IV ONE (12:16)
[2023-01-25] MEDS ORDERED: HEPARIN 10,000 UNIT/10ML (1,000 UNIT/ML) VIAL ONE (12:17)
[2023-01-25] MEDS ORDERED: NITROGLYCERIN 50MG VIAL ONE (12:17)
[2023-01-25] MEDS ORDERED: 0.9%NACL 10ML VIAL IVP SCH (13:30)
[2023-01-25] MEDS ORDERED: DEXTROSE 50%-WATER 50 ML DISP.SYRIN IV PRN (13:30)
[2023-01-25] MEDS ORDERED: INSULIN HUMULIN R 100 UNIT/ML 3ML SQ SCH (16:30)
== END 2023-01-25 19:15 | disposition home or self-care (01) ==
LOC: DAH 08:35
PROVIDERS: ATTEND Internal Medicine Cardiovascular Disease
DX: I25.10 Atherosclerotic heart disease of native coronary artery without angina pectoris (principal); I25.5 Ischemic cardiomyopathy; I50.42 Chronic combined systolic (congestive) and diastolic (congestive) heart failure; I25.2 Old myocardial infarction; E66.9 Obesity, unspecified; J44.9 Chronic obstructive pulmonary disease, unspecified; I48.91 Unspecified atrial fibrillation; Z79.01 Long term (current) use of anticoagulants; Z79.899 Other long term (current) drug therapy; Z95.5 Presence of coronary angioplasty implant and graft; Z98.890 Other specified postprocedural states; Z79.84 Long term (current) use of oral hypoglycemic drugs; Z68.41 Body mass index [BMI] 40.0-44.9, adult
CPT/HCPCS: 80048; 83880; 85025; 85610; 85730; 81001; 36415; 71045; 93005; 93458; 82948; C1894; C1760; J3490 ×3; J7030; J2250 ×2; J2175 ×2; J1644; Q9967 ×2; A4215; A4222; A4221; A4663; A4216; A4606; Q9965; A4223 ×3; 99156; 99157